=== PATIENT | female | born 1995 | race Two or more races ===

== ENCOUNTER 2017-09-24 21:20 | Emergency (ER) | payer BC, MEDICAID ==
[~2017-09-24] VITALS: Ht 160 cm; Wt 75.4 kg
[2017-09-24] MEDS ORDERED: FLUOXETINE HCL 10 MG CAPSULE (22:03)
[2017-09-24] MEDS ORDERED: IV NORMAL SALINE 1000 ML BAG IV ONE (22:30)
[2017-09-24 22:42] LABS: BASOPHILS # (AUTO) 0.1 K/uL (0.0-8.0); BASOPHILS % (AUTO) 1.4 % (0.0-2.0); EOSINOPHILS % (AUTO) 0.5 % (0.0-7.0); HEMATOCRIT 37.9 % (31.2-41.9); LYMPHOCYTES # (AUTO) 2.8 K/uL (20.0-40.0); MEAN CORPUSCULAR HEMOGLOBIN 28.4 uug (24.7-32.8); MEAN CORPUSCULAR HGB CONC 34 g/dL (32.3-35.6); MEAN CORPUSCULAR VOLUME 82.4 fL (75.5-95.3); MONOCYTES # (AUTO) 0.5 K/uL (2.0-10.0); MONOCYTES % (AUTO) 6.5 % (0.0-11.0); NEUTROPHILS # (AUTO) 4.4 K/uL (1.8-8.9); NEUTROPHILS % (AUTO) 55.6 % (38.5-71.5); PLATELET COUNT (AUTO) 282 K/uL (179-408); WHITE BLOOD COUNT (AUTO) 7.8 K/uL (3.8-11.8)
[2017-09-24 22:59] LABS: BILIRUBIN,DIRECT 0.1 mg/dL (0.0-0.2); BILIRUBIN,TOTAL 0.4 mg/dL (0.2-1.0); CREATININE 0.8 mg/dL (0.6-1.3); POTASSIUM 3.9 mmol/L (3.5-5.1); TOTAL PROTEIN, SERUM 7.6 g/dL (6.4-8.2)
--- NOTE | 2017-09-24 23:07 | NUR ---
PT IN BED. PT'S MOTHER AT BEDSIDE. PT IS A&OX4. BREATH SOUNDS ARE REGULAR AND UNLABORED. PT RECEIVING IV FLUIDS. AWAITING FURTHER ORDERS.
--- NOTE | 2017-09-25 01:00 | NUR ---
MD LICEA AT BEDSIDE DISCUSSING LAB RESULTS W/ PT AND PT'S MOTHER.
[2017-09-25] MEDS ORDERED: FLUOXETINE HCL 10 MG CAPSULE PO SCH (01:30)
--- NOTE | 2017-09-25 02:05 | NUR ---
Patient discharged to home in stable conditon. Written and verbal after care instructions given. Patient verbalizes understanding of instructions.
[2017-09-25 02:07] VITALS: BP 105/56
[2017-09-25] MEDS ORDERED: FLUOXETINE HCL 10 MG CAPSULE ONE (02:10)
== END 2017-09-25 02:08 | disposition home or self-care (01) ==
LOC: ER 21:22
DX: E86.0 Dehydration (principal); J11.1 Influenza due to unidentified influenza virus with other respiratory manifestations; F41.0 Panic disorder [episodic paroxysmal anxiety]; N92.0 Excessive and frequent menstruation with regular cycle
CPT/HCPCS: 36415; 70030-TC; 83605; 84703; 85025; 87040; 87400; A4663; J7030

== ENCOUNTER 2017-09-26 22:00 | Emergency (ER) | payer MEDICAID, OTHER ==
[~2017-09-26] VITALS: Ht 157.5 cm; Wt 72.6 kg
[~2017-09-26 22:00] MED LIST: FLUOXETINE HCL 10 MG CAPSULE
--- NOTE | 2017-09-26 22:36 | NUR ---
pt in room accompanied by mother c/o four episodes of panic attacks today, " feels dizziness and almost passing almost passing out, I think my prozac is not working" denies SI, pt was seen here 2 days ago. elyse lightheadness/dizziness/cp/sob at this time, placed in bed in lowest position and locked, HOB up, SR up X2 for safety, CB within reach, awaiting for MD calderon
[2017-09-26] MEDS: LOPERAMIDE HCL 2 MG CAPSULE PO ONE (23:10)
[2017-09-26] MEDS: ONDANSETRON ODT 4 MG TAB.RAPDIS SL ONE (23:10)
[2017-09-26] MEDS: CLONAZEPAM 0.5 MG TABLET PO ONE (23:10)
[2017-09-26 23:18] VITALS: BP 101/58
[2017-09-26] MEDS ORDERED: LOPERAMIDE HCL 2 MG CAPSULE ONE (23:24)
[2017-09-26] MEDS ORDERED: ONDANSETRON ODT 4 MG TAB.RAPDIS ONE (23:24)
[2017-09-26] MEDS ORDERED: CLONAZEPAM 0.5 MG TABLET ONE (23:25)
== END 2017-09-26 23:22 | disposition home or self-care (01) ==
LOC: ER 22:01
DX: F41.9 Anxiety disorder, unspecified (principal); R19.7 Diarrhea, unspecified; R51 Headache
CPT/HCPCS: A4663; Q0162

== ENCOUNTER 2018-02-26 06:47 | Emergency (ER) | payer BC, OTHER ==
[~2018-02-26] VITALS: Ht 157.5 cm; Wt 72.6 kg
[2018-02-26] MEDS ORDERED: IV NS 1000 ML 1,000 ML IV ONE (07:30)
[2018-02-26] MEDS ORDERED: KETOROLAC TROMETHAMINE 30 MG INJ IVP ONE (07:44)
[2018-02-26] MEDS ORDERED: ONDANSETRON IV *ER 4 MG/2 ML VIAL IV ONE (07:45)
[2018-02-26] MEDS ORDERED: ONDANSETRON 4 MG/2 ML VIAL ONE (07:48)
[2018-02-26] MEDS ORDERED: KETOROLAC TROMETHAMINE 30 MG INJ ONE (07:49)
[2018-02-26 07:56] LABS: BASOPHILS # (AUTO) 0.1 K/uL (0.0-8.0); BASOPHILS % (AUTO) 0.8 % (0.0-2.0); EOSINOPHILS # (AUTO) 0.1 K/uL (0.0-0.7); EOSINOPHILS % (AUTO) 1.4 % (0.0-7.0); HEMATOCRIT 40.2 % (31.2-41.9); HEMOGLOBIN 13.8 g/dL (10.9-14.3); LYMPHOCYTES # (AUTO) 1.9 K/uL (20.0-40.0); LYMPHOCYTES % (AUTO) 25.3 % (20.5-51.5); MEAN CORPUSCULAR HEMOGLOBIN 28.6 uug (24.7-32.8); MEAN CORPUSCULAR HGB CONC 34 g/dL (32.3-35.6); MEAN CORPUSCULAR VOLUME 83.1 fL (75.5-95.3); MONOCYTES # (AUTO) 0.4 K/uL (2.0-10.0); MONOCYTES % (AUTO) 5.2 % (0.0-11.0); NEUTROPHILS % (AUTO) 67.3 % (38.5-71.5); PLATELET COUNT (AUTO) 222 K/uL (179-408); RED BLOOD CELL COUNT(AUTO) 4.84 MIL/uL (3.63-4.92); WHITE BLOOD COUNT (AUTO) 7.4 K/uL (3.8-11.8)
[2018-02-26 08:04] LABS: CREATININE 0.9 mg/dL (0.6-1.3); POTASSIUM 3.4 mmol/L (3.5-5.1)
[2018-02-26 08:09] LABS: BILIRUBIN,TOTAL 0.3 mg/dL (0.2-1.0); TOTAL PROTEIN, SERUM 7.7 g/dL (6.4-8.2)
--- NOTE | 2018-02-26 08:12 | NUR ---
Patient ambulated to bathroom 3x to sit on the toilet bowl which helps her abdominal cramping. Extra warm blankets on. Comfort and safety measures maintained.
--- NOTE | 2018-02-26 08:45 | NUR ---
Patient is resting comfortably on gurney while using her cellphone. PATIENT IS PAIN FREE AT THIS TIME.
[2018-02-26] MEDS ORDERED: POTASSIUM CHLORIDE 20 MEQ TAB.PRT.SR PO ONE (08:58)
[2018-02-26] MEDS ORDERED: POTASSIUM CHLORIDE 20 MEQ TAB.PRT.SR ONE (09:08)
--- NOTE | 2018-02-26 09:14 | NUR ---
Patient discharged to home in stable conditon & brisk steady gait. Written and verbal after care instructions given to patient and mother. Patient and family verbalized understanding of instructions.
[2018-02-26 09:27] LABS: *URINE HCG, QUAL NEGATIVE (NEGATIVE)
[2018-02-26 09:29] LABS: *BILIRUBIN,URIN NEGATIVE (NEGATIVE); *BLOOD, URINE 2+ (NEGATIVE); *CLARITY,URINE CLEAR (CLEAR); *COLOR,URINE YELLOW (YELLOW); *KETONES,URINE NEGATIVE (NEGATIVE); *PROTEIN,URINE NEGATIVE (NEGATIVE); *UROBILINOGEN,URINE 0.2 E.U./dl (NORMAL); LEUKOCYTE ESTERASE ,URINE NEGATIVE (NEGATIVE); NITRITE, URINE NEGATIVE (NEGATIVE); UGLUCOSE NEGATIVE (NEGATIVE)
[2018-02-26 09:36] LABS: WBC,URINE 0-3 /HPF (0-3)
[2018-02-26 09:37] LABS: BACTERIA,URINE FEW /HPF (NONE SEEN); MUCUS,URINE FEW /LPF (0-FEW); SQUAMOUS EPITHELIAL CELL,UR FEW /HPF (NONE SEEN)
== END 2018-02-26 09:21 | disposition home or self-care (01) ==
LOC: ER 06:49
DX: R55 Syncope and collapse (principal); N92.0 Excessive and frequent menstruation with regular cycle; N94.6 Dysmenorrhea, unspecified; Z79.899 Other long term (current) drug therapy
CPT/HCPCS: 36415; 80053; 81001; 84703; 85025; 96361; 96374; 96375; 99284; A4663; J1885; J2405; J7030

== ENCOUNTER 2018-05-29 23:12 | Emergency (ER) | payer BC, OTHER ==
[~2018-05-29] VITALS: Ht 160 cm; Wt 62.6 kg
--- NOTE | 2018-05-29 23:38 | NUR ---
Patient discharged to home in stable conditon. Written and verbal after care instructions given. Patient verbalizes understanding of instructions. Pt ambulated out of ER in steady gait. All belongings with pt. VSS. NAD noted.
[2018-05-29 23:39] VITALS: BP 104/62
== END 2018-05-29 23:41 | disposition home or self-care (01) ==
LOC: ER 23:15
DX: J06.9 Acute upper respiratory infection, unspecified (principal)
CPT/HCPCS: 99283; A4663

== ENCOUNTER 2018-07-08 13:40 | Emergency (ER) | payer BC, OTHER ==
[~2018-07-08] VITALS: Ht 154.9 cm; Wt 62.6 kg
--- NOTE | 2018-07-08 13:59 | NUR ---
FADI MIX at the bedside for MSE.
[2018-07-08 14:39] VITALS: BP 102/56
--- NOTE | 2018-07-08 14:40 | NUR ---
Patient discharged to home in stable conditon. Written and verbal after care instructions given. Patient verbalizes understanding of instructions.
== END 2018-07-08 14:39 | disposition home or self-care (01) ==
LOC: ER 13:41
DX: S80.212A Abrasion, left knee, initial encounter (principal); S80.211A Abrasion, right knee, initial encounter; W19.XXXA Unspecified fall, initial encounter; Y93.89 Activity, other specified; Y92.89 Other specified places as the place of occurrence of the external cause; Y99.8 Other external cause status
CPT/HCPCS: A4663

== ENCOUNTER 2018-10-09 14:52 | Emergency (ER) | payer BC, OTHER ==
[~2018-10-09] VITALS: Ht 160 cm; Wt 63.5 kg
--- NOTE | 2018-10-09 15:54 | NUR ---
FADI MIX AT BEDSIDE FOR MSE.
[2018-10-09] MEDS ORDERED: KETOROLAC TROMETHAMINE 30 MG INJ ONE (16:08)
[2018-10-09] MEDS ORDERED: KETOROLAC TROMETHAMINE 30 MG INJ IM ONE (16:15)
--- NOTE | 2018-10-09 16:20 | NUR ---
Patient discharged to home in stable conditon. Written and verbal after care instructions given. Patient verbalizes understanding of instructions. PT D/C W/ PRESCRIPTIONS. ALL BELONGINGS W/ PT. PT SELF-AMBULATED W/O DIFFICULTY.
[2018-10-09 16:21] VITALS: BP 130/60
== END 2018-10-09 16:22 | disposition home or self-care (01) ==
LOC: ER 14:52
DX: B34.9 Viral infection, unspecified (principal); Z79.899 Other long term (current) drug therapy
CPT/HCPCS: 96372; 99283; J1885; A4663

== ENCOUNTER 2020-10-22 16:02 | Emergency (ER) | payer BC, MEDICAID, OTHER ==
[~2020-10-22] VITALS: Ht 160 cm; Wt 85.7 kg
--- NOTE | 2020-10-22 16:20 | NUR ---
Dr Daniels at bedside for MSE.
[2020-10-22] MEDS ORDERED: ACETAMINOPHEN ES 500 MG TABLET PO ONE (16:30)
--- NOTE | 2020-10-22 16:35 | NUR ---
All orders carried out, patient resting in bed. No signs of acute distress. Feels the chills, however, afebrile: 98.3 oral temp.
[2020-10-22 16:40] LABS: BASOPHILS % (AUTO) 0.6 % (0.0-2.0); EOSINOPHILS % (AUTO) 0.5 % (0.0-7.0); HEMATOCRIT 38.6 % (31.2-41.9); LYMPHOCYTES # (AUTO) 0.6 K/uL (20.0-40.0); LYMPHOCYTES % (AUTO) 10.3 % (20.5-51.5); MEAN CORPUSCULAR HEMOGLOBIN 27.5 uug (24.7-32.8); MEAN CORPUSCULAR HGB CONC 34 g/dL (32.3-35.6); MEAN CORPUSCULAR VOLUME 81.6 fL (75.5-95.3); MONOCYTES # (AUTO) 0.7 K/uL (2.0-10.0); MONOCYTES % (AUTO) 12.4 % (0.0-11.0); NEUTROPHILS # (AUTO) 4.1 K/uL (1.8-8.9); NEUTROPHILS % (AUTO) 76.2 % (38.5-71.5); PLATELET COUNT (AUTO) 251 K/uL (179-408); RED BLOOD CELL COUNT(AUTO) 4.72 MIL/uL (3.63-4.92); WHITE BLOOD COUNT (AUTO) 5.3 K/uL (3.8-11.8)
[2020-10-22 16:46] LABS: CARBON DIOXIDE 28 mmol/L (21-32); CHLORIDE 98 mmol/L (98-107); CREATININE 0.8 mg/dL (0.6-1.3); GLUCOSE 92 mg/dL (74-106); POTASSIUM 4.3 mmol/L (3.5-5.1); UREA NITROGEN, BLOOD 8 mg/dL (7-18)
[2020-10-22] MEDS ORDERED: ACETAMINOPHEN ES 500 MG TABLET ONE (16:46)
[2020-10-22 16:52] LABS: ALANINE AMINOTRANSFERASE 36 U/L (14-59); ALKALINE PHOSPHATASE 56 U/L (50-136); ASPARTATE AMINOTRANSFERASE 21 U/L (15-37); BILIRUBIN,DIRECT 0.1 mg/dL (0.0-0.2); BILIRUBIN,TOTAL 0.3 mg/dL (0.2-1.0); CREATINE KINASE, TOTAL 42 U/L (26-192); MAGNESIUM 2.1 mg/dL (1.8-2.4); PHOSPHOROUS 3.7 mg/dL (2.5-4.9); TOTAL PROTEIN, SERUM 7.2 g/dL (6.4-8.2)
[2020-10-22] MEDS ORDERED: ALBU6.7H9 INH (17:32)
[2020-10-22] MEDS ORDERED: APIX2.5T PO (17:32)
[2020-10-22] MEDS ORDERED: ACET-2030 PO (17:32)
[2020-10-22] MEDS ORDERED: AZIT250T13 PO (17:32)
--- NOTE | 2020-10-22 17:56 | NUR ---
Patient discharged to home in stable condition. Written and verbal after care instructions given. Patient verbalizes understanding of instructions. Stressed follow up or return to ER for worsening s/s.
== END 2020-10-22 17:57 | disposition home or self-care (01) ==
LOC: ER 16:03
DX: U07.1 COVID-19 (principal); Z83.3 Family history of diabetes mellitus; Z82.49 Family history of ischemic heart disease and other diseases of the circulatory system; F41.9 Anxiety disorder, unspecified
CPT/HCPCS: 36415; 83735; 84100; 85025; A4663; A9150

== ENCOUNTER 2020-12-16 23:25 | Emergency (ER) | payer MEDICAID ==
[~2020-12-16] VITALS: Ht 165.1 cm; Wt 81.6 kg
[~2020-12-16 23:25] MED LIST changes: +ACET-2030 PO; +ALBU6.7H9 INH; +APIX2.5T PO; +AZIT250T13 PO
[2020-12-17] MEDS ORDERED: HYDR-500 GT (00:17)
[2020-12-17] MEDS ORDERED: hydrOXYzine HCL 25 MG TABLET PO ONE (00:30)
[2020-12-17] MEDS ORDERED: hydrOXYzine HCL 25 MG TABLET ONE (00:30)
== END 2020-12-17 00:38 | disposition home or self-care (01) ==
LOC: ER 23:31
DX: L29.0 Pruritus ani (principal); F32.9 Major depressive disorder, single episode, unspecified; Z83.3 Family history of diabetes mellitus; Z82.49 Family history of ischemic heart disease and other diseases of the circulatory system; Z86.16 Personal history of COVID-19; Z79.899 Other long term (current) drug therapy
CPT/HCPCS: A4663

== ENCOUNTER 2021-02-04 13:00 | Emergency (ER) | payer MEDICAID ==
[~2021-02-04] VITALS: Ht 157.5 cm; Wt 89.4 kg
[~2021-02-04 13:00] MED LIST changes: +HYDR-500 GT
[2021-02-04] MEDS ORDERED: KETOROLAC TROMETHAMINE 30 MG INJ IVP ONE (13:15)
[2021-02-04] MEDS ORDERED: METOCLOPRAMIDE HCL 10 MG/2 ML VIAL IV ONE (13:15)
[2021-02-04] MEDS ORDERED: diphenhydrAMINE 50 MG/1 ML VIAL IV ONE (13:15)
[2021-02-04] MEDS ORDERED: IV NORMAL SALINE 1000 ML BAG IV ONE (13:15)
[2021-02-04 13:22] LABS: *BILIRUBIN,URIN NEGATIVE (NEGATIVE); *BLOOD, URINE NEGATIVE (NEGATIVE); *CLARITY,URINE CLEAR (CLEAR); *COLOR,URINE YELLOW (YELLOW); *KETONES,URINE NEGATIVE (NEGATIVE); *URINE HCG, QUAL NEG (NEGATIVE); *UROBILINOGEN,URINE 0.2 E.U./dl (NORMAL); LEUKOCYTE ESTERASE ,URINE 1+ (NEGATIVE); NITRITE, URINE NEGATIVE (NEGATIVE); UGLUCOSE NEGATIVE (NEGATIVE)
[2021-02-04] MEDS ORDERED: GOLYTELY 4000 ML BOTTLE PO ONE (13:30)
[2021-02-04 13:53] LABS: BACTERIA,URINE FEW /HPF (NONE SEEN)
[2021-02-04 13:54] LABS: MUCUS,URINE FEW /LPF (0-FEW); SQUAMOUS EPITHELIAL CELL,UR MODERATE /HPF (NONE SEEN); URINE AMORPHOUS PHOSPHATES FEW /HPF
[2021-02-04] MEDS ORDERED: METOCLOPRAMIDE HCL 10 MG/2 ML VIAL ONE (13:59)
[2021-02-04] MEDS ORDERED: KETOROLAC TROMETHAMINE 30 MG INJ ONE (13:59)
[2021-02-04] MEDS ORDERED: diphenhydrAMINE 50 MG/1 ML VIAL ONE (13:59)
[2021-02-04] MEDS ORDERED: MAGNESIUM CITRATE 296 ML BOTTLE PO ONE (14:30)
[2021-02-04] MEDS ORDERED: MAGNESIUM CITRATE 296 ML BOTTLE ONE (14:32)
--- NOTE | 2021-02-04 15:02 | NUR ---
Female equipment inspector accompanied female patient for (Dr Prakash).
[2021-02-04] MEDS ORDERED: METR70GE17 VG (16:03)
[2021-02-04] MEDS ORDERED: POLY17PO4 PO (16:05)
--- NOTE | 2021-02-04 16:14 | NUR ---
Removed IV intact, site okay, bandaged. Gave pt RX and d/c instructions, pt verbalized understanding.
== END 2021-02-04 16:20 | disposition home or self-care (01) ==
LOC: ER 13:00
DX: R51.9 Headache, unspecified (principal); K59.00 Constipation, unspecified; N76.0 Acute vaginitis; Z79.01 Long term (current) use of anticoagulants
CPT/HCPCS: 74021; 81001; 84703; 87086; 87210; 96361; 96374; 96375; 99284; J1200; J1885; J2765; A4663; J7030

== ENCOUNTER 2024-05-20 23:00 | Emergency (ER) | payer MEDICAID ==
[~2024-05-20] VITALS: Ht 162.6 cm; Wt 72.6 kg
[~2024-05-20 23:00] MED LIST changes: +METR70GE17 VG; +POLY17PO4 PO
[2024-05-20] MEDS ORDERED: DOXY100C5 PO (23:27)
[2024-05-20] MEDS ORDERED: LAMO150T6 PO (23:27)
[2024-05-20] MEDS ORDERED: METR-147 PO (23:27)
[2024-05-20] MEDS ORDERED: MEDR10TA3 PO (23:27)
[2024-05-20] MEDS ORDERED: METF-440 PO (23:27)
[2024-05-20] MEDS ORDERED: SPIR50TA5 PO (23:27)
[2024-05-20] MEDS ORDERED: PARO40TA PO (23:27)
[2024-05-20] MEDS ORDERED: ONDANSETRON 4 MG/2 ML VIAL ONE (23:45)
[2024-05-20] MEDS ORDERED: KETOROLAC TROMETHAMINE 15 MG INJ ONE (23:46)
[2024-05-21] LABS: BASOPHILS # (AUTO) 0.1 K/UL (0.0-0.2); BASOPHILS % (AUTO) 1.1 % (0.0-2.0); EOSINOPHILS # (AUTO) 0.2 K/uL (0.0-0.7); EOSINOPHILS % (AUTO) 1.8 % (0.0-7.0); HEMATOCRIT 39.8 % (31.2-41.9); HEMOGLOBIN 13.4 g/dL (10.9-14.3); LYMPHOCYTES % (AUTO) 41.5 % (20.5-51.5); MEAN CORPUSCULAR HEMOGLOBIN 27.7 uug (24.7-32.8); MEAN CORPUSCULAR HGB CONC 34 g/dL (32.3-35.6); MEAN CORPUSCULAR VOLUME 81.9 fL (75.5-95.3); MONOCYTES # (AUTO) 0.6 K/uL (0.1-1.30); MONOCYTES % (AUTO) 5.7 % (0.0-11.0); NEUTROPHILS # (AUTO) 4.9 K/uL (1.8-8.9); NEUTROPHILS % (AUTO) 49.9 % (38.5-71.5); PLATELET COUNT (AUTO) 303 K/uL (179-408); RED BLOOD CELL COUNT(AUTO) 4.86 MIL/uL (3.63-4.92); RED CELL DISTRIBUTION WIDTH 13.1 % (12.3-17.7); WHITE BLOOD COUNT (AUTO) 9.7 K/uL (3.8-11.8)
[2024-05-21 00:02] LABS: DIFFERENTIAL COMMENT 1
[2024-05-21] MEDS: KETOROLAC TROMETHAMINE 15 MG INJ IVP STA (00:02)
[2024-05-21] MEDS: ONDANSETRON 4 MG/2 ML VIAL IV ONE (00:02)
[2024-05-21] MEDS: IV NORMAL SALINE 1000 ML BAG IV ONE (00:06)
[2024-05-21 00:15] LABS: ALBUMIN 3.7 g/dL (3.4-5.0); BILIRUBIN,DIRECT 0.1 mg/dL (0.0-0.2); BILIRUBIN,TOTAL 0.4 mg/dL (0.2-1.0); CALCIUM 9.4 mg/dL (8.5-10.1); CREATININE 0.9 mg/dL (0.6-1.3); POTASSIUM 4.2 mmol/L (3.5-5.1); TOTAL PROTEIN, SERUM 7.7 g/dL (6.4-8.2)
[2024-05-21 01:11] LABS: *CLARITY,URINE CLEAR (CLEAR); *COLOR,URINE YELLOW (YELLOW)
[2024-05-21 01:12] LABS: *PROTEIN,URINE NEGATIVE (NEGATIVE); UGLUCOSE NEGATIVE (NEGATIVE)
[2024-05-21 01:13] LABS: *BILIRUBIN,URIN NEGATIVE (NEGATIVE); *BLOOD, URINE TRACE (NEGATIVE); *KETONES,URINE NEGATIVE (NEGATIVE); *URINE HCG, QUAL NEGATIVE (NEGATIVE); *UROBILINOGEN,URINE 0.2 E.U./dl (NORMAL); LEUKOCYTE ESTERASE ,URINE NEGATIVE (NEGATIVE); NITRITE, URINE NEGATIVE (NEGATIVE)
[2024-05-21 01:19] LABS: BACTERIA,URINE NONE SEEN /HPF (NONE SEEN); RBC,URINE 0-3 /HPF (0-3); SQUAMOUS EPITHELIAL CELL,UR FEW /HPF (NONE SEEN); TRICHOMONAS,URINE NONE SEEN /HPF (NONE SEEN); WBC,URINE NONE SEEN /HPF (0-3); YEAST,URINE NONE SEEN /HPF (NONE SEEN)
[2024-05-21] MEDS ORDERED: METOCLOPRAMIDE HCL 10 MG TABLET ONE (01:30)
[2024-05-21] MEDS: IV LACTATED RINGERS SOLUTION 1,000 ML IV PRN (01:35)
[2024-05-21] MEDS: METOCLOPRAMIDE HCL 10 MG TABLET PO ONE (01:35)
[2024-05-21] MEDS ORDERED: METO-295 PO (02:34)
[2024-05-21 02:44] VITALS: BP 97/66; TEMP 98.6; O2SAT 100
== END 2024-05-21 02:45 | disposition home or self-care (01) ==
LOC: ER 23:03
DX: R55 Syncope and collapse (principal); R11.2 Nausea with vomiting, unspecified; R10.2 Pelvic and perineal pain; E86.0 Dehydration; F41.9 Anxiety disorder, unspecified; E28.2 Polycystic ovarian syndrome; Z79.84 Long term (current) use of oral hypoglycemic drugs; Z79.01 Long term (current) use of anticoagulants; Z79.3 Long term (current) use of hormonal contraceptives; Z79.899 Other long term (current) drug therapy; Z88.7 Allergy status to serum and vaccine
CPT/HCPCS: 99285; 80076; 80048; 83690; 85025; 36415; 96374; 96361; 96375; 81001; 84703; J1885; J2405; J7040; J7120; A4606; A4663; J8597